=== PATIENT | male | born 1975 | race Caucasian/White ===

== ENCOUNTER 2022-07-14 18:24 | Emergency (ER) | payer OTHER ==
[2022-07-14] MEDS ORDERED: HYDROcodone/Acetaminophen 10/325 mg Tablet ONE (19:08)
== END 2022-07-14 19:41 | disposition home or self-care (01) ==
LOC: ERS 18:24
DX: S16.1XXA Strain of muscle, fascia and tendon at neck level, initial encounter (principal); V89.2XXA Person injured in unspecified motor-vehicle accident, traffic, initial encounter
CPT/HCPCS: 70450; 72125

== ENCOUNTER 2022-07-26 13:30 | Emergency (ER) | payer OTHER | END 2022-07-26 14:36 | disposition home or self-care (01) | LOC: ERS 13:30 | DX: S06.0X0A Concussion without loss of consciousness, initial encounter (principal); S16.1XXA Strain of muscle, fascia and tendon at neck level, initial encounter; W20.8XXA Other cause of strike by thrown, projected or falling object, initial encounter | CPT/HCPCS: 70450; 72125; 99284 ==